=== PATIENT | male | born 1980 | race American Indian/Alaskan Native ===

== ENCOUNTER 2019-06-27 11:42 | Emergency (ER) | payer BC ==
[~2019-06-27] VITALS: Ht 182.9 cm; Wt 90.3 kg
--- NOTE | 2019-06-27 12:58 | Diagnostic Imaging Report ---
ANKLE 3 VIEW RT - HOPD - Multiple views HISTORY: acute pain COMPARISON: None available. FINDINGS: Bones: No acute displaced fracture. Osseous alignment is within normal limits. Joints: The joint spaces are well-maintained. Soft tissues: The soft tissues appear unremarkable. IMPRESSION: No acute radiographic abnormality. Signed by: Rafael Cota MD on 06/27/2019 12:54 PM
== END 2019-06-27 12:55 | disposition home or self-care (01) ==
LOC: FSED 11:42
DX: S93.401A Sprain of unspecified ligament of right ankle, initial encounter (principal); W01.0XXA Fall on same level from slipping, tripping and stumbling without subsequent striking against object, initial encounter; Y92.008 Other place in unspecified non-institutional (private) residence as the place of occurrence of the external cause
CPT/HCPCS: 99283